=== PATIENT | male | born 1960 | race Caucasian/White ===

== ENCOUNTER → 2016-12-27 | Outpatient (CLI) | payer MEDICARE | LOC: RAD 12:41 | PROVIDERS: ATTEND Family Medicine | DX: Z12.2 Encounter for screening for malignant neoplasm of respiratory organs (principal); Z87.891 Personal history of nicotine dependence | CPT/HCPCS: G0297 ==

== ENCOUNTER 2018-02-13 12:32 | Observation (INO) | payer MEDICARE ==
--- NOTE | 2018-02-13 13:42 | ER Document Report ---
ED Medical Screen (RME) - General TRAVEL OUTSIDE OF THE [place] IN LAST 30 DAYS: No <AYO BREEN - Last Filed: 02/13/18 15:36> <MELI REDDY - Last Filed: 02/13/18 20:05> - General Chief Complaint: Chest Pain Stated Complaint: CHEST PAIN Time Seen by Provider: 02/13/18 13:11 Notes: Patient is a 57-year-old male who presents to the emergency department today with complaints of a syncopal episode that was preceded by dizziness. Patient states he remembers waking up on the ground and "shaking like they do on TV". Patient states he decided to take some of his nitroglycerin which helped relieve his symptoms. Patient states after about 5 minutes he was able to stand up and walk back inside. Patient states there are gaps in time in which she does not remember. Patient denies any chest pain or recent stress test. I have greeted and performed a rapid initial assessment of this patient. A comprehensive ED assessment and evaluation of the patient, analysis of test results, and completion of the medical decision making process will be conducted by additional ED providers. Review of systems: Positive for dizziness, syncope, headache, possible seizure. Negative for chest pain or recent stress test. PHYSICAL EXAM GENERAL: Alert, interacts well. No acute distress. HEAD: Normocephalic, atraumatic. EYES: Pupils equal, round, and reactive to light. Extraocular movements intact. ENT: Oral mucosa moist, tongue midline. NECK: Full range of motion. Supple. Trachea midline. LUNGS: Clear to auscultation bilaterally, no wheezes, rales, or rhonchi. No respiratory distress. HEART: Regular rate and rhythm. No murmurs, gallops, or rubs. ABDOMEN: Soft, non-tender. Non-distended. Bowel sounds present in all 4 quadrants. No guarding, rigidity, or rebound. EXTREMITIES: Moves all 4 extremities spontaneously. NEUROLOGICAL: Alert and oriented x3. Slow to respond but without slurred speech. PSYCH: Normal affect, normal mood. SKIN: Warm, dry, normal turgor. No rashes or lesions noted. (AYO BREEN) - Related Data Allergies/Adverse Reactions: No Known Allergies Allergy (Unverified 02/13/18 12:37) Past Medical History - Social History Chew tobacco use (# tins/day): No Frequency of alcohol use: Rare Drug Abuse: None - Past Medical History Cardiac Medical History: Reports: Hx Heart Attack, Hx Hypertension Renal/ Medical History: Denies: Hx Peritoneal Dialysis Past Surgical History: Reports: Hx Cardiac Surgery, Hx Orthopedic Surgery <AYO BREEN - Last Filed: 02/13/18 15:36> - Vital signs Vitals: Temp Pulse Resp BP Pulse Ox 98.2 F 65 18 92/75 L 97 02/13/18 12:46 02/13/18 12:46 02/13/18 12:46 02/13/18 12:46 02/13/18 12:46 Course - Laboratory Result Diagrams: 02/13/18 13:50 02/13/18 13:50 <AYO BREEN - Last Filed: 02/13/18 15:36> - Laboratory Result Diagrams: 02/13/18 13:50 02/13/18 13:50 <MELI REDDY - Last Filed: 02/13/18 20:05> - Vital Signs Vital signs: Temp Pulse Resp BP Pulse Ox 98.2 F 61 15 178/91 H 100 02/13/18 12:46 02/13/18 19:06 02/13/18 19:06 02/13/18 19:06 02/13/18 19:06 Doctor's Discharge <AYO BREEN - Last Filed: 02/13/18 15:36> <MELI REDDY - Last Filed: 02/13/18 20:05> - Discharge Clinical Impression: Syncope and collapse Condition: Good Disposition: ADMITTED OBSERVATION Scribe Documentation - Scribe Written by Scribe:: Alexander Aguero, 02/13/2018 1537 acting as scribe for :: Hedy <AYO BRENE - Last Filed: 02/13/18 15:36>
--- NOTE | 2018-02-13 13:47 | RADIOLOGY REPORT (SQ) ---
EXAM DESCRIPTION: CT HEAD WITHOUT COMPLETED DATE/TIME: 02/13/2018 1:36 pm REASON FOR STUDY: syncope, TA COMPARISON: None. TECHNIQUE: Axial images acquired through the brain without intravenous contrast. Images reviewed wi th bone, brain and subdural windows. Additional sagittal and coronal reconstructions were generated. Images stored on PACS. All CT scanners at this facility use dose modulation, iterative reconstruction, and/or weight based d osing when appropriate to reduce radiation dose to as low as reasonably achievable (ALARA). [facility]: Dose Right [facility]: CareDose [facility]: Dose Right [facility]: Teradose 4D [facility]: [employer] RADIATION DOSE: CT Rad equipment meets quality standard of care and radiation dose reduction techniq ues were employed. CTDIvol: 53.2 mGy. DLP: 1044 mGy-cm. mGy. LIMITATIONS: None. FINDINGS: VENTRICLES: Normal size and contour. CEREBRUM: No masses. No hemorrhage. No midline shift. No evidence for acute infarction. Normal gra y/white matter differentiation. No areas of low density in the white matter. CEREBELLUM: No masses. No hemorrhage. No alteration of density. No evidence for acute infarction. EXTRAAXIAL SPACES: No fluid collections. No masses. ORBITS AND GLOBE: No intra- or extraconal masses. Normal contour of globe without masses. CALVARIUM: No fracture. PARANASAL SINUSES: Small mucous or serous retention cyst left maxillary sinus. SOFT TISSUES: No mass or hematoma. OTHER: No other significant finding. IMPRESSION: NORMAL BRAIN CT WITHOUT CONTRAST. EVIDENCE OF ACUTE STROKE: NO. COMMENT: Quality ID # [id number]: Final reports with documentation of one or more dose reduction techniques (e.g., Automated exposure control, adjustment of the mA and/or kV according to patient size, use of iterative reconstruction technique) TECHNICAL DOCUMENTATION: JOB ID: [id number] [employer]- All Rights Reserved Reading location - IP/workstation name: [email or web address]
--- NOTE | 2018-02-13 13:53 | RADIOLOGY REPORT (SQ) ---
EXAM DESCRIPTION: CHEST SINGLE VIEW COMPLETED DATE/TIME: 02/13/2018 1:46 pm REASON FOR STUDY: syncope, TA COMPARISON: None. EXAM PARAMETERS: NUMBER OF VIEWS: One view. TECHNIQUE: Single frontal radiographic view of the chest acquired. RADIATION DOSE: NA LIMITATIONS: None. FINDINGS: LUNGS AND PLEURA: No opacities, masses or pneumothorax. No pleural effusion. MEDIASTINUM AND HILAR STRUCTURES: No masses. Contour normal. HEART AND VASCULAR STRUCTURES: Heart normal in size. Normal vasculature. BONES: No acute findings. HARDWARE: None in the chest. OTHER: No other significant finding. IMPRESSION: NO ACUTE RADIOGRAPHIC FINDING IN THE CHEST. TECHNICAL DOCUMENTATION: JOB ID: [id number] [employer]- All Rights Reserved Reading location - IP/workstation name: [email or web address]
[2018-02-13 14:02] LABS: ABSOLUTE LYMPHOCYTES (AUTO) 1.4 10^3/uL (0.5-4.7); ABSOLUTE MONOCYTES (AUTO) 0.5 10^3/uL (0.1-1.4); ABSOLUTE NEUT (AUTO) 6.2 10^3/uL (1.7-8.2); BASOPHILS % (AUTO) 0.4 % (0-2); EOSINOPHILS % (AUTO) 0.6 % (0-6); HEMATOCRIT 39.8 % (37.9-51.0); LYMPHOCYTES % (AUTO) 17.1 % (13-45); MEAN CORPUSCULAR HEMOGLOBIN 29.5 pg (27.0-33.4); MEAN CORPUSCULAR VOLUME 84 fl (80-97); MONOCYTES % (AUTO) 6.5 % (3-13); PLATELET COUNT 235 10^3/uL (150-450); RED BLOOD COUNT 4.73 10^6/uL (4.35-5.55); RED CELL DISTRIBUTION WIDTH 13.4 % (11.5-14.0); SEGMENTED NEUTROPHILS % (AUTO) 75.4 % (42-78); TOTAL CELLS COUNTED % (AUTO) 100 %; WHITE BLOOD COUNT 8.2 10^3/uL (4.0-10.5)
[2018-02-13 14:17] LABS: INTERNATIONAL RATION (INR) 1.04; PROTHROMBIN TIME 14.1 SEC (11.4-15.4)
[2018-02-13 14:18] LABS: PARTIAL THROMBOPLASTIN TIME 26.8 SEC (23.5-35.8)
[2018-02-13 14:28] LABS: ALANINE AMINOTRANSFERASE 38 U/L (21-72); ALBUMIN 4.1 g/dL (3.5-5.0); ALKALINE PHOSPHATASE 82 U/L (38-126); ANION GAP 9 (5-19); ASPARTATE AMINO TRANSFERASE 23 U/L (17-59); BILIRUBIN,DIRECT 0.3 mg/dL (0.0-0.4); BILIRUBIN,TOTAL 0.9 mg/dL (0.2-1.3); BLOOD UREA NITROGEN 12 mg/dL (7-20); CALCIUM 9.2 mg/dL (8.4-10.2); CARBON DIOXIDE 28 mmol/L (22-30); CHLORIDE 106 mmol/L (98-107); CREATINE KINASE 90 U/L (55-170); GLUCOSE 93 mg/dL (75-110); POTASSIUM 4.9 mmol/L (3.6-5.0); TOTAL PROTEIN 6.9 g/dL (6.3-8.2)
[2018-02-13 14:40] LABS: CREATINE KINASE MB 0.39 ng/mL (<4.55); TROPONIN I < 0.012 ng/mL
--- NOTE | 2018-02-13 15:38 | EKG REPORT ---
SEVERITY:- NORMAL ECG - SINUS RHYTHM : Confirmed by: Inna Rock MD 13-Feb-2018 15:37:30
--- NOTE | 2018-02-13 15:42 | ER Document Report ---
ED General - General Chief Complaint: Chest Pain Stated Complaint: CHEST PAIN Time Seen by Provider: 02/13/18 13:11 Mode of Arrival: Ambulatory Information source: Patient Notes: 57-year-old male with hypertension, coronary artery disease presents from home after having a syncopal episode. Patient states that he was outside this morning feeding the squirrels when he went to open the gate of the fence. He states at that time he had some changes in his vision, loss of vision, dizziness and then he fell to the ground. Patient states that he laid there for some time and tried to call for help but was unable to. Patient reports that he remembers his whole body shaking. Patient states that he took his nitroglycerin and then was able to stand up but then he had another fall. Patient denies any preceding chest pain but does state that he has felt short of breath for the last week. He denies any associated fever, chills, nausea, vomiting, cough, abdominal pain. He denies any changes in his medication. He denies any alcohol or drug use. He denies any recent illness, prior similar symptoms. did not witness the shaking but states that there are 2 areas in the yard where you can see that the patient fell into the bushes. TRAVEL OUTSIDE OF THE [place] IN LAST 30 DAYS: No - HPI Onset: Just prior to arrival Onset/Duration: Sudden Quality of pain: No pain Associated symptoms: Nausea, Shortness of breath, Weakness Exacerbated by: Denies Relieved by: Denies Similar symptoms previously: No Recently seen / treated by doctor: No - Related Data Allergies/Adverse Reactions: No Known Allergies Allergy (Unverified 02/13/18 20:55) Past Medical History - General Information source: Patient, Relative, [facility] Records - Social History Smoking Status: Current Every Day Smoker Cigarette use (# per day): Yes - 10 Chew tobacco use (# tins/day): No Smoking Education Provided: Yes - Patient counselled regarding cessation for 4 minutes Frequency of alcohol use: Rare Drug Abuse: None Lives with: Spouse/Significant other Family History: Reviewed & Not Pertinent Patient has suicidal ideation: No Patient has homicidal ideation: No - Past Medical History Cardiac Medical History: Reports: Hx Heart Attack, Hx Hypertension Renal/ Medical History: Denies: Hx Peritoneal Dialysis Past Surgical History: Reports: Hx Cardiac Surgery, Hx Orthopedic Surgery Review of Systems - Review of Systems Constitutional: Weakness EENT: Blurred vision Cardiovascular: Syncope, Dizziness. denies: Chest pain, Palpitations Respiratory: Short of breath Gastrointestinal: Nausea Genitourinary: denies: Flank pain Male Genitourinary: No symptoms reported Musculoskeletal: No symptoms reported Skin: No symptoms reported Hematologic/Lymphatic: denies: Easy bruising Neurological/Psychological: Confusion, Loss of power, Speech impairment -: Yes All other systems reviewed and negative Physical Exam - Vital signs Vitals: Temp Pulse Resp BP Pulse Ox 98.2 F 65 18 92/75 L 97 02/13/18 12:46 02/13/18 12:46 02/13/18 12:46 02/13/18 12:46 02/13/18 12:46 - Notes Notes: PHYSICAL EXAMINATION: GENERAL: Well-appearing, well-nourished and in no acute distress. HEAD: Atraumatic, normocephalic. EYES: Pupils equal round and reactive to light, extraocular movements intact, sclera anicteric, conjunctiva are normal. ENT: Nares patent, oropharynx clear without exudates. Moist mucous membranes. NECK: Normal range of motion, supple without lymphadenopathy LUNGS: Breath sounds clear to auscultation bilaterally and equal. No wheezes rales or rhonchi. HEART: Regular rate and rhythm without murmurs ABDOMEN: Soft, nontender, nondistended abdomen. No guarding, no rebound. No masses appreciated. Musculoskeletal: Normal range of motion, no pitting or edema. No cyanosis. NEUROLOGICAL: Cranial nerves grossly intact. Normal sensory, motor exams. Mild dysarthria, mild facial asymmetry PSYCH: Normal mood, normal affect. SKIN: Warm, Dry, normal turgor, no rashes or lesions noted. Course - Re-evaluation Re-evalutation: Laboratory 02/13/18 02/13/18 02/13/18 13:50 13:50 13:50 WBC 8.2 RBC 4.73 Hgb 14.0 Hct 39.8 MCV 84 MCH 29.5 MCHC 35.0 RDW 13.4 Plt Count 235 Seg Neutrophils % 75.4 Lymphocytes % 17.1 Monocytes % 6.5 Eosinophils % 0.6 Basophils % 0.4 Absolute Neutrophils 6.2 Absolute Lymphocytes 1.4 Absolute Monocytes 0.5 Absolute Eosinophils 0.0 Absolute Basophils 0.0 PT 14.1 INR 1.04 APTT 26.8 D-Dimer Sodium 143.0 Potassium 4.9 Chloride 106 Carbon Dioxide 28 Anion Gap 9 BUN 12 Creatinine 1.13 Est GFR ( Amer) > 60 Est GFR (Non-Af Amer) > 60 Glucose 93 Calcium 9.2 Total Bilirubin 0.9 Direct Bilirubin 0.3 Neonat Total Bilirubin Not Reportable Neonat Direct Bilirubin Not Reportable Neonat Indirect Bili Not Reportable AST 23 ALT 38 Alkaline Phosphatase 82 Creatine Kinase 90 CK-MB (CK-2) Troponin I NT-Pro-B Natriuret Pep Total Protein 6.9 Albumin 4.1 02/13/18 02/13/18 02/13/18 13:50 13:50 13:50 WBC RBC Hgb Hct MCV MCH MCHC RDW Plt Count Seg Neutrophils % Lymphocytes % Monocytes % Eosinophils % Basophils % Absolute Neutrophils Absolute Lymphocytes Absolute Monocytes Absolute Eosinophils Absolute Basophils PT INR APTT D-Dimer 0.32 Sodium Potassium Chloride Carbon Dioxide Anion Gap BUN Creatinine Est GFR ( Amer) Est GFR (Non-Af Amer) Glucose Calcium Total Bilirubin Direct Bilirubin Neonat Total Bilirubin Neonat Direct Bilirubin Neonat Indirect Bili AST ALT Alkaline Phosphatase Creatine Kinase CK-MB (CK-2) 0.39 Troponin I < 0.012 NT-Pro-B Natriuret Pep 164 Total Protein Albumin 02/13/18 15:42 57-year-old male with hypertension, coronary artery disease presents after a syncopal episode at home. Per the patient he became acutely dizzy had visual changes and fell to the ground and was unable to get up until taking his nitro. When he did get up he had another fall and he reports that his whole body was shaking. He denies any associated chest pain but does admit to some shortness of breath. He denies any recent hospitalizations, dictation changes. Vital signs stable upon arrival. EKG was obtained which showed the patient to be in normal sinus matter rate of 65. No ST elevation, QTc is 412. QRS 88. CT of the head was within normal limits. MRI of the brain was also within normal limits. Patient has no significant laboratory findings. On reevaluation patient states that he is feeling better. His speech does seem better. He will need to come in for a syncope workup. Patient admitted by the hospitalist 02/13/18 15:43 02/13/18 15:44 02/14/18 00:39 - Vital Signs Vital signs: Temp Pulse Resp BP Pulse Ox 97.8 F 76 15 163/76 H 94 02/14/18 00:03 02/14/18 00:03 02/14/18 00:03 02/14/18 00:03 02/14/18 00:03 - Laboratory Result Diagrams: 02/13/18 13:50 02/13/18 13:50 - Diagnostic Test Radiology reviewed: Image reviewed, Reports reviewed - EKG Interpretation by Me EKG shows normal: Sinus rhythm Rate: Normal Rhythm: NSR Discharge - Discharge Clinical Impression: Syncope and collapse Condition: Good Disposition: ADMITTED OBSERVATION Admitting Provider: Hospitalist Unit Admitted: Telemetry ED NIH Stroke Scale - NIH Stroke Scale When completed:: Before Alteplase *: 1. NIH scale should be completed with appropriate accompanying assessment tools. *: 2. The NIH should reflect what the patient is capable of doing and should not be coached by the clinician. 1a. Level of Consciousness: 0=Alert;keenly responsive -: 1=Drowsy -: 2=Obtunded -: 3=Coma/unresponsive or reflex to noxious stimuli. 1a. Responses: 0 1b. Orientation Questions: a. What month is it? -: b. How old are you? -: 0=Answers both questions correctly. -: 1=Answers one question correctly or patient is intubated or has orotracheal trauma. -: 2=Answers neither question correctly. 1b. Responses: 0 1c. Response to commands: a. Open and close eyes? -: b. Network Operations Specialist and release hand? -: Credit is given despite weakness. Demonstration of task is permitted. Substitute command if hands cannot be used. -: 0=Performs both tasks correctly -: 1=Performs one task correctly -: 2=Performs neither task correctly 1c. Responses: 0 2. Gaze: Establish eye contact and instruct patient to "Follow my finger" -: 0=Normal -: 1=Partial gaze palsy. Gaze is abnormal in one or both eyes, but where forced deviation or total gaze paresis is not present. -: 2=Forced deviation or total gaze paresis. 2. Responses: 0 3. Visual Kebede: Sees fingers in all four quadrants. -: 0=No visual loss. -: 1=Partial hemianopsia. -: 2=Complete hemianopsia. -: 3=Bilateral hemianopsia (including Cortical blindness) 3. Responses: 0 4. Facial Movement: Instruct patient to: -: a. Show me your teeth -: b. Raise your eyebrows -: c. Close your eyes -: d. Smile -: 0=Normal symmetrical movement -: 1=Minor paralysis (flattened nasolabial fold, asymmetry on smiling). -: 2=Partial paralysis (total or near total paralysis of lower face). -: 3=Complete paralysis of upper and lower face 4. Responses: 1 5. Motor functions (left arm): Alternate sides and extend each arm with palms down (90 degrees if sitting or 45 degrees for supine). -: 0=No drift;limb holds for full 10 seconds. -: 1=Drift; limb holds but drifts down before full 10 seconds, but does not hit bed. -: 2=Some effort against gravity; limb cannot get to or maintain position. -: 3=No effort against gravity; limb falls. -: 4=No movement. -: UN=Amputation, joint fusion, explain in comments. 5. Responses (left arm): 0 5. Motor Functions (right arm): Alternate sides and extend each arm with palms down (90 degrees if sitting or 45 degrees for supine). -: 0=No drift;limb holds for full 10 seconds. -: 1=Drift; limb holds but drifts down before full 10 seconds, but does not hit bed. -: 2=Some effort against gravity; limb cannot get to or maintain position. -: 3=No effort against gravity; limb falls. -: 4=No movement. -: UN=Amputation, joint fusion, explain in comments. 5. Responses (right arm): 0 6. Motor Functions (left leg): With patient lying supine, alternate sides and extend each leg (30 degrees always while supine). -: 0=No drift, leg holds position for full 5 seconds -: 1=Drift; leg falls before full 5 seconds but does not hit bed. -: 2=Some effort against gravity, leg falls to bed but some effort against gravity. -: 3=No effort against gravity, leg falls to bed immediately. -: 4=No movement. -: UN=Amputation, joint fusion; explain in comments. 6. Responses (left leg): 0 6. Motor Functions (right leg): With patient lying supine, alternate sides and extend each leg (30 degrees always while supine). -: 0=No drift, leg holds position for full 5 seconds -: 1=Drift; leg falls before full 5 seconds but does not hit bed. -: 2=Some effort against gravity, leg falls to bed but some effort against gravity. -: 3=No effort against gravity, leg falls to bed immediately. -: 4=No movement. -: UN=Amputation, joint fusion; explain in comments. 6. Responses (right leg): 0 7. Limb Ataxia: With eyes open instruct patient to: -: a. "Touch your finger to your nose". -: b. "Touch your heel to your alarcon" -: 0=Absent -: 1=Present in one limb. -: 2=Present in two limbs. -: UN=Amputation or joint fusion; explain in comments. 7. Responses: 0 8. Sensory: Test sensation using pinprick or noxious stimuli. Test as many body parts as possible. -: 0=Normal;no sensory loss -: 1=Mile to moderate sensory loss (patient feels pin prick but is less sharp on affected side). -: 2=Severe or total sensory loss. 8. Responses: 0 9. Best Language: Instruct patient to: -: a. "Describe what you see in this picture." -: b. "Name the items in this picture." -: c. "Read these sentences." -: 0=No aphasia, normal -: 1=Mild to moderate aphasia. -: 2=Severe aphasia -: 3=Mute, global aphasia, no usable speech or auditory comprehension. 9. Responses: 0 10. Articulation, Dysarthia: Instruct patient to: -: "Read these words" or "Repeat these words" -: 0=Normal -: 1=Mild to moderate; patient may slur some words but can be understood without difficulty. -: 2=Severe; patients speech so slurred as to be unintelligible in the absence of dysphasia. -: UN=Intubated or other physical barrier, explain in comments. 10. Responses: 1 11. Extinction or inattention: 0=No abnormality -: 1= Visual, tactile, auditory, spatial, or personal inattention or extinction to bilateral simulation in one or the sensory modalities. -: 2=Profound kareen-inattention or kareen-inattention to more than one modality; does not recognize own hand. 11. Responses: 0 Total Score: 2
--- NOTE | 2018-02-13 16:41 | RADIOLOGY REPORT (SQ) ---
EXAM DESCRIPTION: MRI HEAD WITHOUT COMPLETED DATE/TIME: 02/13/2018 4:03 pm REASON FOR STUDY: slurred speech facial droop COMPARISON: CT brain 02/13/2018 TECHNIQUE: Multiplanar imaging includes non-contrasted T1, T2, FLAIR, and diffusion with ADC map seq uences. Images stored on PACS. LIMITATIONS: None. FINDINGS: ANATOMY: No anomalies. Normal vascular flow voids. Pituitary fossa normal. CSF SPACES: Normal in size and contour. No hemorrhage. CEREBRUM: Sulci and gyri normal in size and contour. Normal white matter signal on FLAIR imaging. No evidence of hemorrhage, mass, or extraaxial fluid collection. POSTERIOR FOSSA: No signal alteration. No hemorrhage. No edema, masses or mass effect. Internal fortino tory canals, cerebello-pontine angles, mastoids normal. DIFFUSION IMAGING: Negative for acute or sub-acute infarction. ORBITS: No masses. Globes normal. PARANASAL SINUSES: No fluid levels. Mucosa normal. OTHER: No other significant finding. IMPRESSION: NORMAL MRI OF THE BRAIN WITHOUT INTRAVENOUS GADOLINIUM CONTRAST. EVIDENCE OF ACUTE STROKE: NO. TECHNICAL DOCUMENTATION: JOB ID: [id number] [employer]- All Rights Reserved Reading location - IP/workstation name: [email or web address]
[2018-02-13] MEDS ORDERED: ACETAMINOPHEN 325 MG TABLET PO PRN (17:43)
[2018-02-13] MEDS ORDERED: HYDRALAZINE HCL INJ/PF 20 MG/1 ML SDV IV PRN (20:24)
[2018-02-13] MEDS ORDERED: LORAZEPAM 1 MG TABLET PO ONE (20:30)
[2018-02-13] MEDS ORDERED: LORAZEPAM 1 MG TABLET ONE (20:32)
[2018-02-13] MEDS ORDERED: ALPRAZOLAM 0.5 MG TABLET PO PRN (21:36)
[2018-02-13] MEDS ORDERED: TAMSULOSIN HCL 0.4 MG CAP.SR.24H PO SCH (22:00)
[2018-02-13] MEDS ORDERED: ATORVASTATIN CALCIUM 80 MG TABLET PO SCH (22:00)
[2018-02-13] MEDS: HEPARIN SOD (PORCINE) 5,000 UNIT/ML 1 ML SYRINGE SUBCUT SCH (23:40)
--- NOTE | 2018-02-14 04:30 | HISTORY AND PHYSICAL E ---
History and Physical NAME: ROSARIO OSWALD : 1960 AGE: 57Y ADMITTED: 02/13/2018 ROOM: 406 PRIMARY CARE PROVIDER: Dr. Miranda CHIEF COMPLAINT: Syncope. HISTORY OF PRESENT ILLNESS: The patient is a 57-year-old male with a past medical history of hypertension that is described as severe. The patient presented to the emergency department after having an episode of loss of consciousness. According to the patient, he and his were on the porch feeding squirrels when he felt to be at his baseline. The patient walked into a pasture, which is not unusual for him and felt himself getting weaker and "the world going black." The patient stated that he was able to pull himself together and to take what sounds to be a nitrate and was able to walk approximately 10-15 more feet before he completely collapsed. The patient describes complete loss of consciousness, but this was not a witnessed event. The patient stated that he felt that he was probably shaking prior to going down and felt that he was either having a heart attack or his blood sugar was dropping. According to the patient, over the past month he has had increasing shakiness to the point that at times he cannot put toothpaste on a toothbrush citing that he felt his blood sugar was dropping. However, the patient was unable to check his blood sugar during this time. The patient would treat these events as hypoglycemia and eat something and would have partial resolution. However, the patient has had increasing fatigue, as well as sleepiness. Both the patient and his deny any new medications as well. While in the emergency department, the patient did have a CT and MRI, which were essentially unremarkable. The patient's electrolytes were unremarkable. However, the patient was noted to be significantly hypertensive, which sounds to be normal for him, but the patient was noted to be bradycardiac and during my evaluation, the patient read out 48 on the monitor. Given these findings, the patient has been referred to the hospitalist for observation and management. PAST MEDICAL HISTORY: 1. Hypertension. 2. Anxiety disorder. PAST SURGICAL HISTORY: The patient has had 4 foot surgeries, 3 knee surgeries. The patient of note has not had a cardiac catheterization and has not been diagnosed with coronary disease. ALLERGIES: No known drug allergies. MEDICATIONS: Include: 1. Atenolol. 2. Flomax. 3. Finasteride. 4. Lisinopril. 5. Xanax. 6. Prozac. Further dosages are pending Med-Req conciliation. This was the list that was available at the time of admission. SOCIAL HISTORY: The patient currently resides at home with his . He is retired from [employer]. The patient does have a long history of tobacco use. He stopped smoking 5 years ago, but did have a [id number] history. The patient denies any alcohol use or illicit drug use. FAMILY MEDICAL HISTORY: The patient has had a family history of coronary artery disease in both parents. The patient does have siblings, who are healthy. The patient does have children who are healthy. REVIEW OF SYSTEMS: CONSTITUTIONAL: The patient denies any fevers, chills, dizziness, weakness, but does admit to intermittent appetite issues. SKIN: The patient denies any rash, bruising, or itching. Does admit to an episode of diaphoresis today. HEENT: Denies any vision changes, hearing loss, nasal drainage, sore throat or headache. CARDIOVASCULAR: The patient denies any shortness of breath, chest pain, edema, or heart palpitations. CHEST: Denies any cough, sputum production, or hemoptysis. GASTROINTESTINAL: Denies any nausea, vomiting, abdominal pain, bloating, hematemesis, constipation, hematochezia, or melena. GENITOURINARY: Denies any hematuria, pyuria, or dysuria. MUSCULOSKELETAL: Denies any acute or chronic joint pains. NEUROLOGICAL: No seizure or seizure history. He has had some tremulous episodes and did have an episode of loss of consciousness. HEMATOLOGICAL: Denies any inocencio bleeding, easy bruising. ENDOCRINE: Denies any recent weight changes. PSYCHIATRIC: Denies any suicidal or homicidal ideation. The rest of the review of the other organ systems is negative. PHYSICAL EXAMINATION: GENERAL: The patient is a well-developed, well-nourished, 57-year-old male who is awake, alert. He is oriented to person, place, time, and situation. He is verbal, conversational, slightly delayed, does not appear to be in any acute distress. VITAL SIGNS: As follows: Temperature 98.2, pulse 48, respirations 15, blood pressure 178/91, oxygen saturation 100% on room air. SKIN: Warm and dry. No rashes. Not diaphoretic. HEENT: Pupils equal, round, and reactive to light and accommodation. Conjunctivae are pink. Sclerae anicteric. No mouth lesions. Tongue is midline. NECK: Supple. No JVD. No palpable lymphadenopathy or thyromegaly. CARDIOVASCULAR: Heart is regularly. There is no murmur or rub. CHEST: Clear, symmetrical, unlabored. ABDOMEN: Soft, nontender, nondistended. Bowel sounds are present. No palpable organomegaly. BACK: No CVA tenderness or sacral edema. EXTREMITIES: No clubbing, cyanosis, edema, or peripheral signs of embolization. Pedal pulses +1 noted bilaterally. PSYCHIATRIC: The patient denies suicidal/homicidal ideation. Appropriate affect, pleasant mood. DIAGNOSTICS: Hematology obtained on 02/13/2018: WBC 8.2, hemoglobin 14.0, hematocrit 40.8, platelet count 235,000. Coagulation obtained on 02/13/2018: PT 14.1, INR 1.04. D-dimer 0.32. Chemistry obtained on 02/13/2018: Sodium 143, potassium 3.9, chloride 106, carbon dioxide 28, BUN 12, creatinine is 1.3, glucose 93, calcium 9.2, magnesium 1.8, bilirubin 0.9, AST 23, ALT 30, alkaline phosphatase 82, CK 90, CK-MB 0.39, troponin 0.012, BNP 164, protein 6.9, albumin 4.1. EKG obtained 02/13/2018 revealed sinus rhythm. Chest x-ray obtained on 02/13/2018 revealed no acute radiographic finding of the chest. Head CT obtained on 02/13/2018 revealed a normal brain CT without contrast. Head MRI obtained on 02/13/2018 was revealed a normal MRI of the brain without IV contrast. IMPRESSION AND PLAN: 1. SYNCOPE. Uncertain as the exact etiology of this. I do have a high suspicion for bradycardia. Given the patient's atenolol and findings of him being in the 50s and 40s on the monitor in the ED, although nothing lower than this has been recorded, we will hold atenolol for now. Additionally, we will obtain Doppler, including echocardiogram and carotids and we will add A1c given the patient's recent tremulousness. MRI of the brain was unremarkable. We will also add TSH and follow. 2. HYPERTENSION. The patient's blood pressures have been significantly elevated; however, he has difficult blood pressure control at baseline. We will resume the patient's home blood pressure medications once reconcilable and add p.r.n. IV coverage. DISPOSITION: The patient is a FULL CODE. Pending patient's symptomatology and diagnostic findings, will reevaluate in the a.m. We will admit the patient to inpatient observation telemetry as the patient's expected length of stay should not surpass 2 midnights. TIME SPENT: Time spent on this admission including assessment, plan, physical examination, patient education, review of records, and family meeting is 50 minutes. DICTATING PHYSICIAN: HAN HEIN [id number] PHY#: [id number] ID: [id number] JOB#: [id number] ACCT: [id number] cc: >
[2018-02-14] MEDS: HEPARIN SOD (PORCINE) 5,000 UNIT/ML 1 ML SYRINGE SUBCUT SCH (05:39)
--- NOTE | 2018-02-14 08:42 | EKG REPORT ---
SEVERITY:- NORMAL ECG - SINUS RHYTHM : Confirmed by: Brett Funk 14-Feb-2018 08:41:33
[2018-02-14] MEDS ORDERED: FLUOXETINE HCL 20 MG CAPSULE PO SCH (10:00)
[2018-02-14] MEDS ORDERED: FINASTERIDE 5 MG TABLET PO SCH (10:00)
[2018-02-14] MEDS ORDERED: ATENOLOL 50 MG TABLET PO SCH (10:00)
[2018-02-14] MEDS ORDERED: LISINOPRIL 10 MG TABLET PO SCH (10:00)
--- NOTE | 2018-02-14 12:28 | XCELERA REPORT ---
[address] [address] Transthoracic Echocardiogram Report Name: ROSARIO OSWALD Age: 57 yrs Gender: Male : 1960 Patient Status: Inpatient Patient Location: [address] [place], [place] [address] Study Date: 02/14/2018 10:26 AM Height: 67 in Weight: 196 lb BSA: 2.0 m2 Procedure: A complete two-dimensional transthoracic echocardiogram was performed (2D, M-mode, spectral and color flow Doppler). The study was technically adequate with some images being suboptimal in quality. Reason For Study: Dyspnea, CAD Ordering Physician: HAN HEIN Performed By: Francia Castaneda Interpretation Summary The left ventricular ejection fraction is within normal limits. There is mild concentric left ventricular hypertrophy. The left ventricle is grossly normal size. Doppler measurements suggest pseudonormalized left ventricular relaxation, which is associated with grade II/IV or mild to moderate diastolic dysfunction Wall motion cannot be accurately commented on, but no definite regional wall motion abnormalities noted. The right ventricular systolic function is normal. The left atrial size is normal. The right atrium is normal in size There is a trace amount of mitral regurgitation There is no mitral valve stenosis. No aortic regurgitation is present. There is no aortic valve stenosis There is a trace or physiologic amount of tricuspid regurgitation Tricuspid regurgitation jet envelope not well defined to measure RV systolic pressure accurately. The aortic root is not well visualized but is probably normal size. The inferior vena cava appeared normal and decreased > 50% with respiration (RAP 5-10 mmHg) There is no pericardial effusion. MMode/2D Measurements & Calculations RVDd: 3.3 cm LVIDd: 4.3 cm FS: 33.6 % Ao root diam: 3.1 cm IVSd: 1.1 cm LVIDs: 2.8 cm EDV(Teich): 82.5 ml LVPWd: 1.1 cm ESV(Teich): 30.8 ml Ao root area: 7.6 cm2 EF(Teich): 62.7 % LA dimension: 3.2 cm Doppler Measurements & Calculations MV E max bhavna: MV P1/2t max bhavna: Ao V2 max: LV V1 max P.7 cm/sec 64.7 cm/sec 109.7 cm/sec 3.3 mmHg MV A max bhavna: MV P1/2t: 112.9 msec Ao max PG: LV V1 max: 89.3 cm/sec 4.8 mmHg 90.8 cm/sec MV E/A: 0.72 MVA(P1/2t): 1.9 cm2 MV dec slope: 167.7 cm/sec2 MV dec time: 0.37 sec PA V2 max: TR max bhavna: 69.6 cm/sec 206.3 cm/sec PA max PG: TR max P.0 mmHg 1.9 mmHg Left Ventricle The left ventricle is grossly normal size. There is mild concentric left ventricular hypertrophy. The left ventricular ejection fraction is within normal limits. Doppler measurements suggest pseudonormalized left ventricular relaxation, which is associated with grade II/IV or mild to moderate diastolic dysfunction. Wall motion cannot be accurately commented on, but no definite regional wall motion abnormalities noted. Right Ventricle The right ventricle is grossly normal size. There is normal right ventricular wall thickness. The right ventricular systolic function is normal. Atria The right atrium is normal in size. The left atrial size is normal. Interarterial septum not well visualized and not well dopplered. Cannot comment on ASD/PFO presence. Mitral Valve The mitral valve is grossly normal. There is no mitral valve stenosis. There is a trace amount of mitral regurgitation. Aortic Valve The aortic valve is grossly normal. There is no aortic valve stenosis. No aortic regurgitation is present. Tricuspid Valve The tricuspid valve is not well visualized, but is grossly normal. There is no tricuspid stenosis. There is a trace or physiologic amount of tricuspid regurgitation. Tricuspid regurgitation jet envelope not well defined to measure RV systolic pressure accurately. Pulmonic Valve The pulmonic valve is not well visualized. Great Vessels The aortic root is not well visualized but is probably normal size. The inferior vena cava appeared normal and decreased > 50% with respiration (RAP 5-10 mmHg). Effusions There is no pericardial effusion. : HAN HEIN > Brett Funk
--- NOTE | 2018-02-14 14:29 | RADIOLOGY REPORT (SQ) ---
EXAM DESCRIPTION: CAROTID DOPPLER COMPLETED DATE/TIME: 02/14/2018 12:12 pm REASON FOR STUDY: Syncope E16.2 HYPOGLYCEMIA, UNSPECIFIED COMPARISON: None. TECHNIQUE: Grayscale ultrasound, Doppler velocity and spectra, and color Doppler images acquired of the extra-cranial carotid and vertebral arteries. Images stored on PACS. LIMITATIONS: None. FINDINGS: RIGHT CAROTID CCA Velocities: Within normal limits. ICA Velocities Peak systolic 0.73 m/s. End diastolic 0.22 m/s. Proximal ICA/CCA peak systolic ratio 0.8. Spectra normal. No significant plaque. LEFT CAROTID CCA Velocities: Within normal limits. ICA Velocities Peak systolic 0.59 m/s. End diastolic 0.21 m/s. Proximal ICA/CCA peak systolic ratio 1.8. Spectra normal. No significant plaque. VERTEBRAL ARTERIES: Antegrade flow. Normal waveforms. SUBCLAVIAN ARTERIES: No finding. OTHER: No other significant finding. IMPRESSION: NO HEMODYNAMICALLY SIGNIFICANT STENOSIS. COMMENT: Quality ID #[id number]: Velocity criteria are extrapolated from the diameter data as defined by t he Society of Radiologists in Ultrasound Consensus Conference. Radiology 2003: 229; 340-346. TECHNICAL DOCUMENTATION: JOB ID: [id number] [employer]- All Rights Reserved Reading location - IP/workstation name: [email or web address]
--- NOTE | 2018-02-14 14:59 | PDOC DISCHARGE SUMMARY ---
General - Admit/Disc Date/PCP Admission Date/Primary Care Provider: 02/13/18 17:47 EL GÓMEZ MD Discharge Date: 02/14/18 - Discharge Diagnosis (1) Syncope and collapse Is this a current diagnosis for this admission?: Yes Summary: Patient had no further episodes of syncope. CT the head, MRI of the head, carotid duplex and will labs were unremarkable. Telemetry showed sinus rhythm with sinus arrhythmia at times. He does have an occasional bradycardi into the 50s however he is a very normal blood pressure with on his atenolol. Recommend he follow-up with his primary care provider. He can certainly have an event monitor with cardiology. Also complaining of intermittent tremors of his hands , a follow-up with neurology would also be warranted. (2) Essential hypertension Is this a current diagnosis for this admission?: Yes Summary: He has normal tensive on his current medications. Atenolol was held overnight and he was having higher readings overnight but these have improved with the resumption of his blood pressure medicine. (3) Anxiety and depression Is this a current diagnosis for this admission?: Yes Summary: Continue home medications. - Additional Information Resuscitation Status: Full Code Discharge Diet: Regular Discharge Activity: Activity As Tolerated, Balance Activity w/Rest Home Medications: Alprazolam [Xanax] 1 mg PO BIDP PRN 02/13/18 Atenolol [Tenormin 50 mg Tablet] 50 mg PO DAILY 02/13/18 Atorvastatin Calcium [Lipitor 80 mg Tablet] 80 mg PO QHS 02/13/18 Ergocalciferol (Vitamin D2) [Vitamin D2] 50,000 unit PO Q7D PRN 02/13/18 Finasteride [Proscar 5 mg Tablet] 5 mg PO DAILY 02/13/18 Fluoxetine HCl 40 mg PO DAILY 02/13/18 Lisinopril [Prinivil 10 mg Tablet] 10 mg PO DAILY 02/13/18 Nitroglycerin [Nitrostat 0.4 mg (1/150 Gr) Tabs 25/Bottle] 1 tab SL Q5MP PRN Tamsulosin HCl [Flomax] 0.4 mg PO QHS 02/13/18 History of Present Illness Patient complains of: Syncopal episode History of Present Illness: Jhonatan Lawson is a 57-year-old male. He presented to [facility]'s emergency room with complaints of blackout spell at home. He states he was out feeding squirrels in his backyard when he became lightheaded and later found himself on the ground. There was no loss of continence, no trauma to his head. He states he has had near similar spells where he became lightheaded and thought he was going to pass out. He is also noted tremors of his hands over the last couple months. EKG done on arrival showed sinus bradycardia with heart rate in the 50s, no ST or T-wave changes of ischemia. He underwent CT of the head and MRI of the head which were unremarkable. He was referred to the hospitalist service for admission. Hospital Course Hospital Course: Patient was admitted to telemetry floor overnight. His atenolol was held because of his bradycardia. He had no arrhythmias noted overnight. He was noted to be sinus bradycardia to sinus rhythm. Carotid duplex was obtained. Labs were checked for thyroid and electrolytes which were all unremarkable. Carotid duplex was read as normal. He underwent a transthoracic echo which showed a normal EF with grade 2/4 diastolic dysfunction. Orthostatic vital signs were obtained which were unremarkable. He has had no similar episodes here. We have discussed the need for follow-up with his primary care provider this week hopefully. He would likely benefit from referral to cardiology for an event monitor. He may also benefit from a neurology follow-up regarding his tremors of his hands and possible syncopal episode. She and are in agreement to this. Physical Exam Vital Signs: Temp Pulse Resp BP Pulse Ox 98.4 F 85 18 156/89 H 95 02/14/18 11:29 02/14/18 11:29 02/14/18 11:29 02/14/18 11:29 02/14/18 11:29 Intake & Output 02/13/18 02/14/18 02/15/18 06:59 06:59 06:59 Intake Total 650 Balance 650 Weight 89.1 kg General appearance: PRESENT: no acute distress, well-developed, well-nourished Head exam: PRESENT: atraumatic, normocephalic Eye exam: PRESENT: conjunctiva pink, EOMI, PERRLA. ABSENT: scleral icterus Ear exam: PRESENT: normal external ear exam Mouth exam: PRESENT: moist, tongue midline Neck exam: ABSENT: carotid bruit, JVD, lymphadenopathy, thyromegaly Respiratory exam: PRESENT: clear to auscultation sal. ABSENT: rales, rhonchi, wheezes Cardiovascular exam: PRESENT: bradycardia, RRR, +S1, +S2 Pulses: PRESENT: normal carotid pulses, normal radial pulses Vascular exam: PRESENT: normal capillary refill GI/Abdominal exam: PRESENT: normal bowel sounds, soft. ABSENT: distended, guarding, mass, organolmegaly, rebound, tenderness Rectal exam: PRESENT: deferred Extremities exam: PRESENT: full ROM. ABSENT: calf tenderness, clubbing, pedal edema Musculoskeletal exam: PRESENT: ambulatory, full ROM, normal inspection Neurological exam: PRESENT: alert, awake, oriented to person, oriented to place , oriented to time, oriented to situation, CN II-XII grossly intact. ABSENT: motor sensory deficit Psychiatric exam: PRESENT: appropriate affect, normal mood. ABSENT: homicidal ideation, suicidal ideation Skin exam: PRESENT: dry, intact, warm. ABSENT: cyanosis, rash Results Laboratory Results: 02/13/18 02/14/18 02/14/18 18:52 01:00 06:48 Troponin I < 0.012 < 0.012 < 0.012 Impressions: Chest X-Ray 02/13/18 13:22 IMPRESSION: NO ACUTE RADIOGRAPHIC FINDING IN THE CHEST. Head CT 02/13/18 13:22 IMPRESSION: NORMAL BRAIN CT WITHOUT CONTRAST. EVIDENCE OF ACUTE STROKE: NO. Head MRI 02/13/18 14:25 IMPRESSION: NORMAL MRI OF THE BRAIN WITHOUT INTRAVENOUS GADOLINIUM CONTRAST. EVIDENCE OF ACUTE STROKE: NO. Carotid Doppler Study 02/14/18 00:00 IMPRESSION: NO HEMODYNAMICALLY SIGNIFICANT STENOSIS. Qualifiers - * PATIENT BEING DISCHARGED WITH ANY OF THE FOLLOWING DIAGNOSIS: No Plan Discharge Plan: Home with . He will follow-up with his primary care provider this week. Time Spent: Less than 30 Minutes
[2018-02-14 15:05] VITALS: BP 183/90
== END 2018-02-14 15:20 | disposition home or self-care (01) ==
LOC: ER 12:32 → EH 17:47 → 4N 22:44
PROVIDERS: ADMIT Internal Medicine; ATTEND Internal Medicine
DX: R55 Syncope and collapse (principal); I10 Essential (primary) hypertension; F41.9 Anxiety disorder, unspecified; F32.9 Major depressive disorder, single episode, unspecified; G25.2 Other specified forms of tremor; R00.1 Bradycardia, unspecified; R53.83 Other fatigue; R61 Generalized hyperhidrosis; R06.02 Shortness of breath; R11.0 Nausea; R53.1 Weakness; R51 Headache; W19.XXXA Unspecified fall, initial encounter; I25.10 Atherosclerotic heart disease of native coronary artery without angina pectoris; H53.8 Other visual disturbances; R41.0 Disorientation, unspecified; R47.9 Unspecified speech disturbances; Y93.89 Activity, other specified; Y92.89 Other specified places as the place of occurrence of the external cause; I25.2 Old myocardial infarction; Z79.899 Other long term (current) drug therapy; Z87.891 Personal history of nicotine dependence; Z98.890 Other specified postprocedural states
CPT/HCPCS: 93005 ×2; 99406; 99285; 36415 ×2; 82553; 82550; 83735; 84443; 85025; 85610; 85730; 80053; 84484 ×2; 83036; 85379; 83880; 93306; 93880; 70551; 71045; 70450; 93010 ×2; G0378 ×3; A9270 ×6; J1644 ×2; J0360; J3490 ×2